=== PATIENT | female | born 1965 ===

== ENCOUNTER 2019-03-25 04:43 | Outpatient (CLI) | payer SELFPAY ==
[2019-03-25 08:32] LABS: HEMOGLOBIN A1C 5.8 % (4.5-6.2)
[2019-03-25 08:45] LABS: CHOL/HDL RATIO 3.65 (0.00-4.99)
== END 2019-03-25 23:59 | disposition home or self-care (01) ==
LOC: HW HEART 04:43
DX: Z13.6 Encounter for screening for cardiovascular disorders (principal)
CPT/HCPCS: 36415; G0438